=== PATIENT | male | born 1955 | race Caucasian/White ===

== ENCOUNTER 2024-01-31 13:37 | Inpatient (IN) ==
[2024-01-31] MEDS: Propofol 10 mg/ml 100 ML BTL 1,000 MG/100 ML BTL IV SCH (13:45)
[2024-01-31 14:29] LABS: Resp Rate 16
[2024-01-31 14:31] LABS: PCO2 Arterial 55 mmHg (35-45); PO2 Arterial 69 mmHg (80-100)
[2024-01-31 15:17] LABS: Urine Appearance Clear; Urine Bilirubin Negative (Negative); Urine Blood Negative (Negative); Urine Color Light-Yellow; Urine Glucose 4+ (>=1000 mg/dL) (Negative); Urine Ketones Negative (Negative); Urine Nitrite Negative (Negative); Urine Protein Negative (Negative); Urine Specific Gravity 1.016 (1.002-1.030); Urine Urobilinogen Negative (Negative); Urine pH 5.5 (5.0-8.0)
[2024-01-31 15:18] LABS: ABS Lymphocytes 0.7 10^3/uL (1.0-4.8); ABS Monocytes 0.4 10^3/uL (0.0-1.1); ABS Neutrophils 5.5 10^3/uL (1.5-7.6); Eosinophil % 0.1 %; Hematocrit 33.2 % (38-53); Hemoglobin 11.1 g/dL (13.2-16.3); Lymphocyte % 9.9 %; Mean Corpuscular Hemoglobin 30.6 pg (27-33); Mean Corpuscular Hgb Conc 33.4 g/dL (31-36); Mean Corpuscular Volume 91.5 fL (80-97); Mean Platelet Volume 6.7 fL (7.5-11.2); Nucleated Red Blood Cells % 0.1 %/100WBC (0.0-0.8); Platelet Count 194 10^3/uL (150-450); Red Blood Count 3.62 10^6/uL (4.06-5.63); Red Cell Distribution Width 13.5 % (12-17); White Blood Count 6.6 10^3/uL (3.6-10.2)
[2024-01-31 15:28] LABS: INR 1.01 (0.85-1.14)
[2024-01-31 15:51] LABS: Albumin 3.5 g/dL (3.2-5.2); Albumin/Globulin Ratio 1.7 (1-3); Calcium 8.8 mg/dL (8.6-10.3); Creatinine, Serum 1.88 mg/dL (0.67-1.17); Globulin 2.1 g/dL (2-4); Potassium 4.4 mmol/L (3.5-5.0); Total Bilirubin 0.3 mg/dL (0.2-1.0); Total Protein 5.6 g/dL (6.4-8.9); eGFR CKD-EPI 38.9 (>60)
[2024-01-31] MEDS ORDERED: Albuterol 2.5mg/3 ml (0.083%) NEB.SOLN INH PRN (16:29)
[2024-01-31] MEDS ORDERED: Dextrose 50% Syringe 50 ml 25 GM/50 ML SYRINGE IV PUSH PRN (16:54)
[2024-01-31] MEDS: fentaNYL 100 mcg/2 ml 50 MCG/ML VIAL IV SLOW PU PRN (17:30)
[2024-01-31] MEDS: Chlorhexidine MOUTHWASH 0.12% 15 ML UDC TOPICAL SCH (18:11)
[2024-01-31] MEDS: methylPREDNISolone SOD SUCC 40 mg/ml 1 ml VIAL IV SCH (18:12)
[2024-01-31] MEDS: Albuterol/Ipratropium NEB.SOL (2.5/0.5 MG) 3 ML NEB.SOLN INH SCH (18:36)
[2024-01-31] MEDS: Enoxaparin 40 MG/0.4 ML SYR SUBCUT SCH (19:59)
[2024-01-31] MEDS: Pantoprazole VIAL 40 MG VIAL IV SCH (19:59)
[2024-02-01 06:00] LABS: ABS Lymphocytes 0.8 10^3/uL (1.0-4.8); ABS Monocytes 0.4 10^3/uL (0.0-1.1); Eosinophil % 0.1 %; Hematocrit 31.8 % (38-53); Hemoglobin 10.6 g/dL (13.2-16.3); Lymphocyte % 11.4 %; Mean Corpuscular Hemoglobin 30.4 pg (27-33); Mean Corpuscular Hgb Conc 33.4 g/dL (31-36); Mean Corpuscular Volume 91.1 fL (80-97); Mean Platelet Volume 6.5 fL (7.5-11.2); Platelet Count 173 10^3/uL (150-450); Red Blood Count 3.49 10^6/uL (4.06-5.63); Red Cell Distribution Width 13.4 % (12-17); White Blood Count 7.2 10^3/uL (3.6-10.2)
[2024-02-01 06:51] LABS: Calcium 9.1 mg/dL (8.6-10.3); Creatinine, Serum 1.77 mg/dL (0.67-1.17); Phosphorus 2.5 mg/dL (2.5-5.0); Potassium 4.2 mmol/L (3.5-5.0); eGFR CKD-EPI 41.8 (>60)
[2024-02-01] MEDS: Dexamethasone IV 4 MG/ML VIAL 1 ml VIAL IV SLOW PU ONE (08:55)
[2024-02-01] MEDS: methylPREDNISolone SOD SUCC 40 mg/ml 1 ml VIAL IV ONE (11:57)
[2024-02-01] MEDS: Albuterol/Ipratropium NEB.SOL (2.5/0.5 MG) 3 ML NEB.SOLN INH SCH (13:22)
[2024-02-01] MEDS: Azithromycin 250 MG in NS 0.9% 250 ml 250 ML IVPB SCH (15:39)
[2024-02-02 05:26] LABS: ABS Basophils 0.1 10^3/uL (0.0-0.1); ABS Lymphocytes 0.9 10^3/uL (1.0-4.8); ABS Monocytes 0.4 10^3/uL (0.0-1.1); ABS Neutrophils 5.7 10^3/uL (1.5-7.6); Eosinophil % 0.2 %; Hematocrit 30.1 % (38-53); Hemoglobin 10.1 g/dL (13.2-16.3); Lymphocyte % 12.2 %; Mean Corpuscular Hemoglobin 30.4 pg (27-33); Mean Corpuscular Hgb Conc 33.7 g/dL (31-36); Mean Corpuscular Volume 90.3 fL (80-97); Mean Platelet Volume 6.6 fL (7.5-11.2); Platelet Count 183 10^3/uL (150-450); Red Blood Count 3.34 10^6/uL (4.06-5.63); Red Cell Distribution Width 13.9 % (12-17)
[2024-02-02 06:04] LABS: Calcium 8.9 mg/dL (8.6-10.3); Creatinine, Serum 1.7 mg/dL (0.67-1.17); Potassium 3.9 mmol/L (3.5-5.0); eGFR CKD-EPI 43.9 (>60)
[2024-02-02] MEDS: Dexamethasone IV 4 MG/ML VIAL 1 ml VIAL IV SLOW PU ONE (07:51)
[2024-02-02] MEDS: EPINEPHrine,Rac 2.25% NEB.SOL 0.5 ML INH ONE (09:05)
[2024-02-02] MEDS: hydrALAZINE 20 mg/ml 1 ML Vial IV IV SLOW PU PRN (09:33)
[2024-02-02] MEDS: Magnesium Sulfate 2 gm BAG 2 GM/50 ML BAG IVPB ONE (09:36)
[2024-02-02] MEDS: EPINEPHrine,Rac 2.25% NEB.SOL 0.5 ML INH PRN (10:00)
[2024-02-02] MEDS: LORazepam 2 mg VIAL 1 ml IV PUSH ONE (10:19)
[2024-02-02] MEDS ORDERED: Midazolam 10 mg/10 ml VIAL 1 mg/ml 10 ml VIAL (10 mg) ONE (10:38)
[2024-02-02] MEDS ORDERED: Rocuronium 50 mg VIAL 10 mg/ml 5 ml VIAL (50 mg) ONE (10:38)
[2024-02-02] MEDS ORDERED: Etomidate 40 mg/20 ml (2 MG/ML) 20 ml VIAL (40 mg) ONE (10:38)
[2024-02-02] MEDS ORDERED: Propofol 10 MG/ML 20 ML BTL ONE (10:38)
[2024-02-02] MEDS: LORazepam 2 mg VIAL 1 ml ONE (11:34)
[2024-02-02] MEDS: Rocuronium 50 mg VIAL 10 mg/ml 5 ml VIAL (50 mg) ONE (11:34)
[2024-02-02] MEDS: cefTRIAXone 1 gm/50 mL D5W 1 GM/50 ML BAG IV SCH (13:22)
[2024-02-02] MEDS ORDERED: Polyethylene Glycol 3350 17 GM PACKET G TUBE PRN (14:12)
[2024-02-03 04:46] LABS: ABS Basophils 0.1 10^3/uL (0.0-0.1); ABS Eosinophils 0.1 10^3/uL (0.0-0.5); ABS Lymphocytes 1.3 10^3/uL (1.0-4.8); ABS Monocytes 0.3 10^3/uL (0.0-1.1); ABS Neutrophils 6.1 10^3/uL (1.5-7.6); Hematocrit 32.3 % (38-53); Lymphocyte % 16.1 %; Mean Corpuscular Hemoglobin 30.7 pg (27-33); Mean Corpuscular Hgb Conc 34.1 g/dL (31-36); Mean Corpuscular Volume 90.2 fL (80-97); Mean Platelet Volume 6.4 fL (7.5-11.2); Platelet Count 200 10^3/uL (150-450); Red Blood Count 3.59 10^6/uL (4.06-5.63); White Blood Count 7.9 10^3/uL (3.6-10.2)
[2024-02-03 05:44] LABS: Calcium 9.1 mg/dL (8.6-10.3); Creatinine, Serum 1.63 mg/dL (0.67-1.17); Magnesium 2.3 mg/dL (1.9-2.7); eGFR CKD-EPI 46.2 (>60)
[2024-02-03] MEDS: Senna TAB 8.6 mg TAB G TUBE SCH (08:37)
[2024-02-03] MEDS: Dexamethasone IV 4 MG/ML VIAL 1 ml VIAL IV SLOW PU SCH (08:37)
[2024-02-03] MEDS ORDERED: Furosemide 20 mg/2 ml IV VIAL IV ONE (09:00)
[2024-02-03] MEDS: Midazolam 2 mg/2 ml VIAL 1 mg/ml 2 ml VIAL (2 mg) IV SLOW PU PRN (10:42)
[2024-02-03] MEDS: fentaNYL INFUSION 50 mcg/mL VL 2,500 MCG/50 ML VIAL IV SCH (12:22)
[2024-02-03] MEDS ORDERED: Midazolam 2 mg/2 ml VIAL 1 mg/ml 2 ml VIAL (2 mg) IV SLOW PU PRN (13:01)
[2024-02-03] MEDS: Midazolam 5 mg/5 ml VIAL 1 mg/ml 5 ml VIAL (5 mg) IV SLOW PU PRN (15:05)
[2024-02-04 04:43] LABS: ABS Basophils 0.1 10^3/uL (0.0-0.1); ABS Eosinophils 0.1 10^3/uL (0.0-0.5); ABS Lymphocytes 0.9 10^3/uL (1.0-4.8); ABS Monocytes 0.3 10^3/uL (0.0-1.1); ABS Neutrophils 3.7 10^3/uL (1.5-7.6); Eosinophil % 2.8 %; Hematocrit 29.6 % (38-53); Hemoglobin 9.9 g/dL (13.2-16.3); Lymphocyte % 17.8 %; Mean Corpuscular Hemoglobin 30.1 pg (27-33); Mean Corpuscular Hgb Conc 33.3 g/dL (31-36); Mean Corpuscular Volume 90.3 fL (80-97); Mean Platelet Volume 6.6 fL (7.5-11.2); Platelet Count 181 10^3/uL (150-450); Red Blood Count 3.28 10^6/uL (4.06-5.63); Red Cell Distribution Width 14.2 % (12-17); White Blood Count 5.1 10^3/uL (3.6-10.2)
[2024-02-04 05:32] LABS: Calcium 8.6 mg/dL (8.6-10.3); Creatinine, Serum 1.59 mg/dL (0.67-1.17); Magnesium 2.2 mg/dL (1.9-2.7); eGFR CKD-EPI 47.6 (>60)
[2024-02-04] MEDS ORDERED: Dextrose 50% Syringe 50 ml 25 GM/50 ML SYRINGE IV PUSH PRN (12:59)
[2024-02-04] MEDS: Iodixanol 320 (CONTRAST) 100 ML SDV IV ONE (15:35)
[2024-02-05 01:51] VITALS: BP 120/65
== END 2024-02-05 01:00 | disposition short-term general hospital (02) | DRG 208 ==
LOC: ICU 13:40
PROVIDERS: ADMIT Internal Medicine; ATTEND Internal Medicine